=== PATIENT | female | born 1940 | race Two or more races ===

== ENCOUNTER 2024-11-19 13:51 | Outpatient (CLI) | payer MEDICARE, SELFPAY ==
--- NOTE | 2024-11-19 11:00 | DI.RAD_ITS ---
Exam(s) XR HIP LT COMPLETE AP PELVIS EXAM: XR HIP LT COMPLETE AP PELVIS CLINICAL HISTORY: L hip/knee pain. TECHNIQUE: 2D digital imaging was performed. Two views. COMPARISON: CR XR KNEE COMPLETE MIN 4V BILAT-M2 from 10/04/2022 FINDINGS: BONES: No acute fracture is present. No bony destructive lesion is seen. JOINTS: No dislocation present. The SI joints and pubic symphysis are intact. Minimal degenerative ch anges of the hip joints and left SI joint.. SOFT TISSUE: Normal. IMPRESSION: Minimal degenerative changes. DATA REPOSITORY: RADIATION DOSE DELIVERED:
== END 2024-11-19 13:52 | disposition home or self-care (01) ==
LOC: DIORS 13:52
PROVIDERS: PCP Family Medicine; Referring Provider Family Medicine; Visit Provider Student in an Organized Health Care Education/Training Program
DX: M17.12 Unilateral primary osteoarthritis, left knee
CPT/HCPCS: 99203; 73502

== ENCOUNTER 2025-02-15 10:59 | Outpatient (CLI) | payer MEDICARE, SELFPAY ==
--- NOTE | 2025-02-15 10:45 | DI.RAD_ITS ---
Exam(s) XR KNEE LT 1V XR STANDING ALIGNMENT EXAM: XR STANDING ALIGNMENT CLINICAL HISTORY: PRE OP L TKA. TECHNIQUE: 2D digital imaging was performed. Standing AP views were performed from the pelvis through the ankles. Lateral view of the left knee COMPARISON: CR XR KNEE LT 1V from 02/15/2025 FINDINGS: BONES: No acute fracture is present. No bony destructive lesion is seen. Prominent scoliosis as well as degenerative changes are noted in the lower lumbar spine. Leg length discrepancy: No significant overall leg length discrepancy at the level of the femoral heads. The right tibia is longer than the left by approximately 1 cm. JOINTS: Knees: The knee joint spaces are maintained. There is mild periarticular spurring. The ankle joints are unremarkable. The hip joints are unremarkable. SOFT TISSUE: Normal. IMPRESSION: Mild degenerative changes of the knees. leg length discrepancy at the level of the tibias, with the right tibia measuring 1 cm longer than the left.. DATA REPOSITORY: RADIATION DOSE DELIVERED:
== END 2025-02-15 11:00 | disposition home or self-care (01) ==
LOC: DIORS 11:00
PROVIDERS: PCP Family Medicine; Referring Provider Family Medicine; Visit Provider Physician Assistant
DX: Z01.818 Encounter for other preprocedural examination (principal); M17.12 Unilateral primary osteoarthritis, left knee
CPT/HCPCS: 99024; 73560; 77073

== ENCOUNTER 2025-02-24 06:55 | Day surgery (SDC) | payer MEDICARE, SELFPAY ==
[2025-02-24] VITALS (29 sets, daily range): BP systolic 117–162; BP diastolic 44–67; PULSE 54–78; RESP 12–19; TEMP 36.3–36.6; O2SAT 91–98; BMI 27.8
--- NOTE | 2025-02-24 07:24 | W.PM.DSUDISC ---
Date of service: 02/24/25 Discharge Plan Disposition Patient Disposition: Home Condition: Good Discharge Details Reason For Visit: L TKR Attending Provider: Jean Pratt Primary Care Provider: Joao Lombardo Home Meds and New Rx's Prescriptions: New celecoxib 200 mg capsule 200 mg PO BID Qty: 60 0RF aspirin 81 mg tablet,delayed release (DR/EC) 81 mg PO BID Qty: 60 0RF acetaminophen 500 mg tablet 1,000 mg PO TID Qty: 90 3RF dexamethasone 4 mg tablet 4 mg PO DAILY Qty: 2 0RF docusate sodium 100 mg capsule 100 mg PO BID PRNQty: 28 0RF gabapentin 300 mg capsule 300 mg PO QHS Qty: 14 0RF oxycodone 5 mg tablet 5 mg PO Q4H PRNQty: 18 0RF Continued calcium carbonate-vitamin D3 600 mg-20 mcg (800 unit) tablet 1 tab PO BID fexofenadine [Barbara Allergy] 180 mg tablet 180 mg PO DAILY amlodipine 5 mg tablet 5 mg PO DAILY atorvastatin 20 mg tablet 20 mg PO DAILY metoprolol succinate 25 mg tablet extended release 24 hr 25 mg PO DAILY omeprazole 20 mg capsule,delayed release(DR/EC) 20 mg PO DAILY psyllium husk [Daily Fiber] 0.4 gram capsule 0.4 g PO DAILY Discontinued aspirin [Adult Aspirin Regimen] 81 mg tablet,delayed release (DR/EC) 81 mg PO DAILY acetaminophen 500 mg capsule 500 mg PO BID Discharge Instructions Additional Instructions: Total Knee Discharge Instructions Activity: The most important activity is to walk and to work on gentle motion (both flexion and extension). You should try to take short walks a few times a day. It is important that when resting you work on keeping the knee straight. Avoid putting a pillow behind the knee as this will encourage flexion. Work on range of motion exercises as provided by Physical Therapy. - Start outpatient physical therapy within 2 weeks. - You should wear the RUTH hose on both legs for 2 weeks. You may remove these at night. You may also use any compression sock in place of the RUTH hose. - Utilize [employer] to review exercises, see videos on exercises and obtain basic information pertaining to your surgery and your recovery. Dressing: Remove the Singh wrap by 2 days after your surgery and put on the RUTH stocking given to you from the hospital. Keep the surgical dressing (underneath the SINGH wrap) in place for at least one week. After the first week it may be removed and replaced with light gauze and tape or nothing. The wound and dressing may get wet after 3 days but avoid soaking the dressing or otherwise it will need to be changed. Many people prefer covering the dressing with cling wrap (saran wrap) to minimize it from getting soaked. If it gets wet, just pat dry. If it starts to peel off then it will need to be changed. Medications: - You should take Tylenol and anti-inflammatory Celebrex as your primary pain control medications. If the Celebrex is too expensive or not covered, please call the office for another alternative (Advil/Ibuprofen or Naproxen/Aleve) - You have been prescribed a stronger pain medication Oxycodone for breakthrough pain, take as needed as prescribed. - You will continue your stomach acid reduction agent omeprazole to help reduce stomach acid and reflux. - You have been prescribed Gabapentin to take at night for restlessness and nerve pain. - You will be taking Aspirin 81mg twice a day for DVT prevention unless instructed otherwise. - You have also been prescribed Decadron to take to control post-operative nausea and pain. You will start this tomorrow. - If you have constipation you should take Colace or Miralax (both [id number]). It takes most people 3-4 days to have a bowel movement. Follow-up: 2 weeks If you have any acute concerns or questions, please do not hesitate to contact the office at [phone]. You may contact Dr. Pratt with any questions after hours through the hospital at [phone] or on his cell phone at [phone]. Stand Alone Forms: Anesthesia Discharge Inst., [place].Nerve Block Instructions, Arabella Wood ([facility]) Referrals: Jean Pratt MD [ [facility] STAFF PHYSICIAN, Orthopaedic Surgical] - 03/11/25 11:15 am Equipment/Supplies: Walker Activity:: Activity as Tolerated Shower/Bathe:: 72 hours Diet:: As Tolerated Discharge Orders Discharge Orders: Discharge Order (Routine); Ordered 02/24/25 Ordered By: John Lee DS: Diagnosis Discharge Diagnosis (1) Osteoarthritis of left knee: Status: Acute
--- NOTE | 2025-02-24 07:37 | W.ANESPRE ---
General Info Date of Service Date Performed: 02/24/25 Height: 5 ft 6 in Weight: 78.2 kg Body Mass Index (BMI): 27.8 Surgical Procedure: Operation Date: 02/24/25 10:55 Proposed Procedure Side Surgeon p Knee Total Arthroplasty Left Jean Pratt MD Meds Allergies and Home Medications Allergies Allergy/AdvReac Type Severity Reaction Status Date / Time alcohol Allergy Unknown Anaphylaxis Verified 02/24/25 07:40 clindamycin Allergy Unknown Unknown Verified 02/24/25 07:40 ibuprofen Allergy Unknown Unknown Verified 02/24/25 07:40 sulfisoxazole (From Allergy Unknown Unknown Verified 02/24/25 07:40 Gantrisin) Home Medication ?Medication ?Instructions ?Recorded amlodipine 5 mg tablet 5 mg PO DAILY 09/29/24 atorvastatin 20 mg tablet 20 mg PO DAILY 09/29/24 fexofenadine 180 mg tablet 180 mg PO DAILY 09/29/24 (Barbara Allergy) metoprolol succinate 25 mg 25 mg PO DAILY 09/29/24 tablet,extended release 24 hr omeprazole 20 mg capsule,delayed 20 mg PO DAILY 09/29/24 release calcium 600 mg (as 1 tab PO BID 11/19/24 carbonate)-vitamin D3 20 mcg (800 unit) tablet psyllium husk 0.4 gram capsule 0.4 g PO DAILY 02/23/25 (Daily Fiber) acetaminophen 500 mg tablet 1,000 mg (2 x 500 mg) PO TID #90 02/24/25 tabs aspirin 81 mg tablet,delayed 81 mg PO BID #60 tabs 02/24/25 release celecoxib 200 mg capsule 200 mg PO BID #60 caps 02/24/25 dexamethasone 4 mg tablet 4 mg PO DAILY #2 tabs 02/24/25 docusate sodium 100 mg capsule 100 mg PO BID PRN #28 caps 02/24/25 gabapentin 300 mg capsule 300 mg PO QHS #14 caps 02/24/25 oxycodone 5 mg tablet 5 mg PO Q4H PRN #18 tabs 02/24/25 Current Visit Medications: Current Medications Generic Name Dose Route Start Last Admin Trade Name Freq PRN Reason Stop Dose Admin Acetaminophen 1,000 mg 02/24/25 06:00 Acetaminophen 500 Mg Tab PO 02/24/25 23:59 PREOP MARINO Acetaminophen 1,000 mg 02/24/25 07:21 Acetaminophen 500 Mg Tab PO 03/26/25 07:20 TID PRN PRN Analgesia Celecoxib 400 mg 02/24/25 06:00 Celecoxib 200 Mg Cap PO 02/24/25 23:59 PREOP MARINO Docusate Sodium 100 mg 02/24/25 07:21 Docusate Sodium 100 Mg Cap PO 03/26/25 07:20 BID PRN PRN Constipation Gabapentin 300 mg 02/24/25 06:00 Gabapentin 300 Mg Cap PO 02/24/25 23:59 PREOP MARINO Ringer's Solution 1,000 mls @ 80 mls/hr 02/24/25 06:00 IV 02/24/25 23:59 INFUSION MARINO Cefazolin Sodium/Dextrose 2 gm in 50 mls @ 100 mls/hr 02/24/25 06:00 Ancef Duplex IVPB 02/24/25 23:59 PREOP MARINO Tranexamic Acid/Sodium Chloride 1,000 mg in 100 mls @ 600 mls/hr 02/24/25 06:00 IVPB 02/24/25 23:59 PREOP MARINO IV Miscellaneous Supplies 1 each 02/24/25 06:00 Iv Access IV 02/24/25 23:59 DIRECTED MARINO Ondansetron HCl 4 mg 02/24/25 07:21 Ondansetron 4 Mg/2 Ml Vial IVP 03/26/25 07:20 Q6H PRN PRN Nausea Oxycodone HCl 0 mg 02/24/25 07:21 Oxycodone 5 Mg Tab PO 03/26/25 07:20 Q3H PRN PRN Pain Polyethylene Glycol 17 gm 02/24/25 07:21 Polyethylene Glycol 3350 17 Gm Packet PO 03/26/25 07:20 BID PRN PRN Constipation Sodium Chloride 0 ml 02/24/25 06:00 Normal Saline Flush 10 Ml Syr IV 02/24/25 23:59 PRN PRN Sodium Chloride 0 ml 02/24/25 06:00 Normal Saline 10 Ml Vial IJ 02/24/25 23:59 DIRECTED PRN Sterile Water 0 ml 02/24/25 06:00 Water,Injection,Sterile 10 Ml Vial IJ 02/24/25 23:59 DIRECTED PRN Tranexamic Acid 1,300 mg 02/24/25 07:21 Tranexamic Acid 650 Mg Tab PO 02/24/25 07:22 ONCE ONE PFSH Active Problems Active Problems: Problem Status Onset Code Osteoarthritis of left knee Acute M17.12 Vitamin D deficiency Acute E55.9 History of nephrectomy Acute Z90.5 Osteoporosis Chronic M81.0 Hypertensive disorder Chronic I10 GERD (gastroesophageal reflux disease) Chronic K21.9 Dyslipidemia Acute E78.5 Arteriosclerotic vascular disease Acute I70.90 Surgical History Surgical History History of cataract extraction History of nephrectomy, right History of tubal ligation History of tonsillectomy History of appendectomy History of cholecystectomy Alcohol Alcohol Intake: never Substance Use Substance use type: does not use Vital Signs and Lab Results Vital Signs Most Recent Vital Signs in EMR: Most Recent Vital Signs Pulse Resp BP Pulse Ox 78 16 159/59 H 94 02/24/25 07:23 02/24/25 07:23 02/24/25 07:23 02/24/25 07:23 Imaging and Studies Imaging and Studies Study information below may be from another EMR and interpreted by another provider. Please see original notes in EMR for more complete details. EKG Summary: 01/28/25 SR Anesthesia Assessment and Plan Anesthesia History Personal History: No History of Anesthesia Complications Family History: No Family History of Anesthesia Complications Exercise Tolerance Exercise Tolerance: Metabolic Equivalents<4 Pertinent Negatives Pertinent Negatives: No Symptoms of GERD, No Major Cardiovascular Symptoms or Complaints, No Major Pulmonary Symptoms or Complaints and No History of CVA/TIA Cardiac & Pulmonary Exam Cardiac Exam: Normal S1/S2 Heart Sounds Pulmonary Exam: Clear Bilateral Breath Sounds Implantable Cardiac Device Does patient have a Pacemaker or an ICD?: No Airway Exam Known Difficult Airway: No Mallampati Class: 3 Mouth Opening: Normal (> 3cm) Thyromental Distance: Less than 3 cm Neck Range of Motion: Limited ROM Neck Circumference: Normal Teeth Condition: Normal Dentition ASA Classification ASA Score: ASA 3 Emergency Case?: No NPO Status NPO Status: NPO Clears >2 hours, Solids >8 hours Anesthesia Plan Resuscitation Status: Full Code Anesthesia Technique: Spinal Anesthesia Airway Planned: Natural Airway Pain Management: Surgeon and patient request nerve block Monitors Used: Standard Monitors Preoperative Comments:: 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 GFR slightly diminished.
[2025-02-24] MEDS: Lactated Ringers 1,000 ML 80 ML IV (08:02)
[2025-02-24] MEDS: Acetaminophen 500 MG TAB 1000 MG PO (08:03)
[2025-02-24] MEDS: Celecoxib 200 MG CAP 400 MG PO (08:03)
[2025-02-24] MEDS: Gabapentin 300 MG CAP PO (08:03)
--- NOTE | 2025-02-24 09:58 | W.ANESNERVE ---
Nerve Block Single Injection Procedure Date and Time Date Performed: 02/24/25 Procedure Start: 09:30 Location Where Procedure Performed Procedure Location: Day Surgery Unit Reason Performed: Postoperative Analgesia Requesting Provider: Jean Pratt Timeout Performed Timeout Performed: Yes Monitoring Used ECG, Blood Pressure, SpO2 and See EMR for corresponding vital signs Sterility Sterility: Hand Hygiene, Surgical Cap, Surgical Mask, Sterile Gloves, Sterile Drape/Sheet and Chlorhexidine Sedation Given During Procedure Sedation Given (Indicate Dose Given): No Sedation given Patient Mental Status Patient Mental Status: Awake Nerve Block 1st Nerve Block: Laterality: Left Block Type: Adductor Canal Ultrasound Image Saved?: Yes Needle / Catheter Used: 100mm SonoPlex II Local Anesthetic Bolus (Indicate Dose Given): Lidocaine used for local infiltration of skin, Injected in 3-5ml increments after negative blood aspiration, Bupivacaine 0.25% Dose:: 10 ml and Exparel Dose:: 10 ml Additives (Indicate Dose Given): None Ultrasound: Sterile probe cover and gel used Nerve Stimulator: Supplement to Ultrasound use and No twitch or parasthesia noted < 0.5 mA Paresthesia: None Procedure Tolerated: No Complications and Patient tolerated well Procedure Outcome: Successful Performed By: Claudia Griffin
[2025-02-24] MEDS: ceFAZolin 2 GM/50 ML BAG IVPB (10:11)
--- NOTE | 2025-02-24 10:24 | W.PM.OP ---
Operative Note Operative Note PRE-OP DIAGNOSIS: Left Knee Osteoarthritis POST-OP DIAGNOSIS: same PROCEDURE: Left Total Knee Replacement SURGEON: Jean Pratt DIRECTOR OF RADIOLOGY: Nury Lee ANESTHESIA TYPE: Spinal Refer to Anesthesia Record ESTIMATED BLOOD LOSS: 150 PATHOLOGY: none sent COMPLICATIONS: None Patient was transported to: PACU Patient's condition: stable Implants: 1. Depuy Attune Cruciate Retaining Femoral Component, Size 5 2. Depuy Attune Fixed Bearing Tibial Component, Size 4 3. Depuy Attune 5x6 CR,FB Poly 4. Depuy Attune Patellar Component, Size 38 Indications: I have seen Shaun in clinic for symptoms of knee arthritis, confirmed with radiographic findings. SHe has exhausted nonoperative methods and was having significant limitations in daily function and desired better function and less pain. I discussed the technical details of a knee replacement. I explained the risks of the procedure to include, but not limited to, bleeding, infection, pain, stiffness, fracture, damage to nerves and vessels, damage to muscles and tendons, loosening, need for repeat procedure, blood clot and cardiopulmonary demise. Despite these risks, Shaun elected to proceed. 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 There is some medial involvement although not as significant. Procedure Description: Shaun was greeted in the preoperative holding area where the correct side was identified and marked. The consent was reviewed with the patient and signed. The history and physical was updated. All questions were answered. Preoperative mediacations were administered: Acetaminophen 1000mg, Celebrex 400mg, and Gabapentin 300mg. An adductor canal block was then administered by the anesthesia team in the [facility]. She was taken back to the operating room. A spinal anesthestic was then administered. The patient was placed into the supine position on the operating room table. Posts were placed for positioning during the procedure. All bony prominences were well padded. Prophylactic antibiotics in the form of Cefazolin were administered. 1g of Tranxemic Acid was given intravenously within 30 minutes of incision. The right leg was then prepped with Chloraprep and draped in a standard fashion with impervious stockinette and extremity drape. A second prep with Chloraprep was performed prior to placing Ioband. A timeout to confirm correct identity, side and site, procedure, allergies, anesthesia, and medical concerns was performed. With the knee in some flexion, a midline incision was made overlying the knee. Full thickness skin flaps were raised once the extensor mechanism was encountered. These were raised medially and laterally. Any bleeding was controlled with electrocautery. Once the extensor mechanism was fully exposed, a medial parapatellar arthrotomy was performed in a flexed position. All bleeding from the arthrotomy and the geniculate arteries was coagulated. A medial subperiosteal peel was performed with electrocautery to the midcoronal plane. The fat pad was removed while keeping the patellar tendon protected. The anterior distal femur synovium was removed for later visualization. The ACL and PCL were resected and the anterior horn of the lateral meniscus was transected. The knee was then flexed with the patella everted. Using a step drill, and based on preoperative templating, the femoral canal was entered. This was done with a step drill without any difficulty. The intramedullary distal femoral cut guide was inserted, set to a 6 degree valgus cut and 9mm cut thickness. The distal femoral cut guide was then held in position and pinned. With the soft tissues protected, the distal cut was performed. This was passed over a few times to ensure a planar cut. I then turned attention to the tibia. The extramedullary guide was placed onto the leg. The distal aspect was slid medial to adjust for position of center of ankle and stay in line with shaft of the tibia. Approximately 3-5 degrees of posterior slope was kept in the proximal cutting guide. The center of the guide was aligned with the PCL. The stylus was used to assess cut thickness, a balanced cut between 7 and 8 mm medially and laterally. This was then held in position and pinned into place with 2 additional pins and a cross pin for stability. The medial and lateral collateral ligaments were protected and the cut was performed. With this completed, it was assessed and noted to be of appropriate dimensions. The guide was removed. A spacer block was inserted and the knee was brought into extension. The 6mm spacer block provided full extension, without hyperextension and with stability of both the medial and lateral collateral ligaments was assessed. The pins from the femur and the tibia were then removed. The distal femur was then sized. The anterior stylus was placed onto the lateral ridge of the anterior femur. This indicated a size 5 femur. The external rotation of the guide was adjusted to 3 degrees to match the epicondylar axis, perpendicular to [place]?s line. The 4-in-1 cutting guide was the placed. The posterior medial femur cut was evaluated and appeared of good thickness. The spacer block was inserted underneath the cutting guide and stability was confirmed in 90 degrees of flexion. An inez wing was used to confirm appropriate position of the anterior cut to avoid notching. This cutting guide was ensured to be flush on the cut surface and then pinned into place with headed pins. While protecting the soft tissues, quad tendon, and collateral ligaments, the anterior and posterior cuts were performed with a saw. The central two pins were removed and the posterior and anterior chamfers were cut next. The notch-cutting guide was placed. This was pinned to lateralize the femoral component as much as possible while keeping it flush on the cut surface. This was then pinned into position. A reciprocating saw was used to make the small notch cut. A trial CR femoral component was then inserted, impacted down to the cut surfaces, and the lug holes were drilled. A provisional trial tibial component was placed and the knee was brought through range of motion. There was noted to be excellent extension and flexion. There was no significant instability. The patella was tracking without thumbs. The tibial cut surface was fully exposed. The medial and lateral menisci were removed. The tibia was then sized as a 4. The tibia had been previously marked during trialing to correspond to the center of the tibial component to help with rotation. The trial was aligned to this nury, approximately rotated to the medial 1/3rd of the tibial tubercle. The trial was pinned into place. The tibia was prepared with a reamer and a keel punch. The knee was then brought into extension and the patella was measured as 23mm. Using the patellar clamp and cut guide, this was resected to a flat surface with at least 13mm of thickness remaining. The size 38 patella fit the best. This was oriented and then clamped into position. The lugs were drilled. The trial components were removed. The final components, except for the polyethylene were opened on the back table. The periosteal and capsular tissues, especially posteriorly, around the knee were then systematically injected with a periarticular cocktail consisting of 246mg of Ropivacaine, 0.5mg of Epinephrine, 0.08mg of Clonidine, and 30mg of Ketorolac, diluted to 100cc.. The tourniquet was then inflated to 275mmHg. The knee was thoroughly irrigated with a pulse lavage and dried. On the back table, with the implants opened, the cement was mixed. 2 batches of medium viscosity cement were prepared with vacuum assistance. After the cement was ready it was placed on to the back side of the tibial component. A small amount was placed onto the posterior flange of the femur. Cement was manual pressurized and impregnated into the cut surface of the tibia. The tibial component was then inserted into the cut surface and impacted into position. Excess cement was removed and the component was reimpacted. Again, excess cement was removed and our attention was then turned to the femur. The femoral cut surface was once again dried and cement was manually impacted into the cut surface. The femoral component was lined with the lug holes and impacted. Excess cement was removed. It was ensured to be down against the cut surface. The trial polyethylene was then inserted and the leg was brought out into full extension for the duration of the cement curing process, approximately 18min. Cement was lastly manually impacted into the cut surface of the patella and the patellar button was clamped into position and held. During this process attention was turned to the gutters of the knee and for all interfaces for any excess cement. While the cement was hardening, the knee was irrigated with Surgiphor Betadine solution. It was allowed to sit in the knee for 3 minutes and then it was thoroughly irrigated with saline. After the cement had finally cured, approximately 18min, the clamp was removed from the patella and the knee was taken through range of motion. A size 6mm polyethylene component provided the best range of motion and stability with less than 2mm gapping with medial and lateral stress and full extension without significant hyperextension. The patella was tracking with a no-thumbs technique. The trial poly was removed and once again the knee was checked for any loose, excess, or errant cement. The poly component was then inserted into position after cleaning and drying the tibial tray. The capsule was then reapproximated with a No. 1 Vicryl at multiple locations. The capsule was finally closed with a No. 2 Stratafix, barbed suture. Deep tissues were then reapproximated with 0 Vicryl and 2-0 Vicryl. The skin was closed with a running 3-0 Monocryl in a subcuticular fashion. This was reinforced with skin glue. A Mepilex silver dressing was applied along with a [id number] VIVEK wrap. A CryoCuff was applied. Shaun was transferred to the hospital bed without difficulty an suffering no apparent complication. She has a good prognosis. Physical therapy will start today and without restrictions, weight-bearing as tolerated. Aspirin 81mg BID will be used for DVT prophylaxis. Date of Procedure: 02/24/25
[2025-02-24] MEDS: TRANEXAMIC ACID/SOD. CHL. 1,000 MG/100 ML BAG 600 MG IVPB (10:25)
[2025-02-24] MEDS: oxyCODONE 5 MG TAB PO (13:41)
--- NOTE | 2025-02-24 13:44 | W.ANESPOSTOP ---
Postoperative Evaluation Date, Time and Location Date Performed: 02/24/25 Time Performed: 13:44 Patient Location: Day Surgery Unit Vital Signs Most Recent Imported Vital Signs: Most Recent Vital Signs Temp Pulse Resp BP Pulse Ox 36.6 C 68 15 117/64 96 02/24/25 13:06 02/24/25 13:06 02/24/25 13:06 02/24/25 13:06 02/24/25 13:06 Pain Score Most Recent Pain Score: Most Recent Pain Score Pain Level 5 02/24/25 13:06 Assessment Mental Status: Awake (Alert & Oriented to Patient Baseline) Airway and Respiratory Function: Patent airway with normal (patient baseline) respiratory exam Cardiovascular Function: Hemodynamically Stable Hydration Status: Adequately Hydrated Nausea & Vomiting: No Nausea or Vomiting Pain: Pain is tolerable per patient Peripheral Nerve Block: Patient did not receive a nerve block
[2025-02-24] MEDS: Tranexamic Acid 650 MG TAB 1300 MG PO (14:24)
--- NOTE | 2025-02-24 14:48 | IN_ITS ---
PT Notes Visit Reasons: L TKR Physical Therapy Day Surgery Initial Evaluation Date: 02/26/2025 Referring Doctor: VAIBHAV Sibley PT Orders: PT CONSULT: Eval/Treat Precautions: WBAT on the left LE with AD. Patient Profile/Admitting Diagnosis: Harish is an 84-year-old female with degenerative joint disease of the left knee and status post left total knee arthroplasty on postoperative day 0. PMHX: All Active Problems (Updated 11/19/24 @ 12:44 by VAIBHAV Sibley) Osteoarthritis of left knee (Acute) Vitamin D deficiency (Acute) History of nephrectomy (Acute) Osteoporosis (Chronic) Hypertensive disorder (Chronic) GERD (gastroesophageal reflux disease) (Chronic) Dyslipidemia (Acute) Arteriosclerotic vascular disease (Acute) Surgical History (Updated 09/29/24 @ 13:04 by Isaebla Mike RN) History of tubal ligation History of tonsillectomy History of appendectomy History of cholecystectomy Social History/Home Situation: Lives with in a private home with 3 steps to enter with a rail on 1 side. Independent with all aspects of ADLs prior to surgery the patient has been having difficulty with mobility due to worsening arthritis in the left knee. Equipment Owned/DME: FWW, SPC Subjective: Denied headache, chest pain, and lightheadedness throughout session. Complained of 2?3/10 pain in the left knee that did not limit mobility performance. Objective: General Observation: Patient resting on bedside chair. Singh wraps to left LE. TDS to right leg and foot. Cryocuff to left knee. present in room throughout session. Mental Status: A and O x 4 Pain: 2?3/10 in left knee ROM: Right Lower Extremity: Hip flexion WFL. Hip abduction WFL. Knee flexion WFL. Ankle dorsiflexion WFL. Ankle plantarflexion WFL. Left Lower Extremity: Hip flexion WFL. Hip abduction WFL. Knee flexion 10 degrees to 100 degrees. Knee extension -10 degrees. Ankle dorsiflexion WFL. Ankle plantarflexion WFL. Strength: Right Lower Extremity: Hip flexors 5/5. Hip abductors 5/5. Knee flexors 5/5. Knee extensors 5/5. Ankle dorsiflexors 5/5. Ankle plantarflexors 5/5. Left Lower Extremity:Hip flexors 4/5. Hip abductors 4/5. Knee flexors 3-/5. Knee extensors 3-/5. Ankle dorsiflexors 5/5. Ankle plantarflexors 5/5. Sensation: Intact as to pain and light pressure in bilateral lower extremities Bed Mobility/Transfers: Minimal cueing provided for use of B hands as needed for support, movement sequence, AD management, and posture to reduce fall risk and minimize pain report Supine to sit stand by assist Sit to stand contact-guard assist with FWW Stand to sit standby assist with FWW Bed to chair standby assist with FWW Gait: Facilitate safe and correct performance of level surface ambulation covering a distance of 150 feet using reciprocal step through heel-toe gait pattern requiring only standby assist and minimal verbal cueing for AD management, po sture, and limb movement sequence to maximize independence and reduce fall risk. Stairs: Guided patient with safe and correct negotiation of 3 x 4 inch steps and 2 x 6 inch steps while holding onto 1 rail and using single-point cane with the other hand using step to gait pattern requiring only contact-guard assist and minimal verbal cueing for limb movement sequence, hand placement, and posture to maximize independence and reduce fall risk. Balance: Static Sitting: Normal Dynamic Sitting: Good Static Standing: Fair Dynamic Standing: Fair Special Tests: Mobility Limitations Standardized Measure [facility] 6 clicks Basic Mobility Inpatient Short Form: Raw Score: 23 CMS Score: 11% deficit Informed Consent/Education: Patient instructed in purpose of PT consult. Packet containing TKA exercise protocol has been given to patient. Education and training on initial set of exercises that can be done at home have been completed with patient. Trained patient with correct performance of exercises below to maximize motor control, joint flexibility, soft tissue extensibility of the L knee musculature: Access Code: [email or web address] URL: [email or web address] Date: 02/26/2025 Prepared by: Montse Ward Exercises - Supine Quad Set - 1 x daily - 7 x weekly - 1 sets - 10 reps - 5 hold - Supine Heel Slide - 1 x daily - 7 x weekly - 1 sets - 10 reps - 5 hold - Supine Ankle Pumps - 1 x daily - 7 x weekly - 1 sets - 10 reps - 5 hold - Small Range Straight Leg Raise - 1 x daily - 7 x weekly - 1 sets - 10 reps - 5 hold - Seated October - x daily - 7 x weekly - 1 sets - 10 reps - 5 hold Assessment: Patient requires the use of a front wheeled walker for mobility ADL performance to maximize independence and reduce fall risk. Patient presents with clinical signs and symptoms consistent with current/admitting diagnoses that have resulted to mobility limitations, gait instability, generalized weakness, and impairment of motor control as demonstrated by the following impairment level findings: 1. Decreased strength to left knee major muscle groups 2. Impaired standing balance 3. Limitation of joint range of motion in left knee Impairments are contributing to the following functional limitations: 1. Inability to safely ambulate without assistive device 2. Increase completion time for mobility ADL performance 3. Increased fall risk Patient is assessed as a 62804 moderate complexity based on the following: History: 84-year-old female with impairment level findings, functional limitations, and past medical history as indicated above Examination: Demonstrable impairment in strength, balance, and mobility level with underlying impairments and functional limitations as documented above Presentation: Evolving 80570 moderate complexity Decision Making: Goals: N/A. PT evaluation and 1-2 treatment sessions only for functional mobility training using recommended AD and for HEP instruction. Plan of Care/Treatment Plan: N/A. PT evaluation and 1-2 treatment session only for functional mobility training using recommended AD and for HEP instruction. DISCHARGE RECOMMENDATIONS: Home when medically cleared by orthopedic surgeon. Recommend outpatient PT services in order to optimize functional mobility outcomes and facilitate return to independent community ambulation without an assistive device. TREATMENT CODE/TIME: 65866 x 20 minutes for 1 unit, 31710 x 10 minutes for 1 unit (14 48?15:18). Thank you for the opportunity to participate in the care of this patient. Montse Ward PT, DPT, CLT [facility] [place], [place]
== END 2025-02-24 16:30 | disposition home or self-care (01) ==
PROVIDERS: PCP Family Medicine; Visit Provider Student in an Organized Health Care Education/Training Program
PROC: (CPT 27447; principal; 2025-02-24 10:45)
DX: M17.12 Unilateral primary osteoarthritis, left knee (principal); G89.18 Other acute postprocedural pain
CPT/HCPCS: 27447; 64447; 97162; 97530; C1776; J0665; J0666; J0690; J1100; J2250; J2371; J2401; J2405; J2704

== ENCOUNTER 2025-03-11 11:06 | Outpatient (CLI) | payer MEDICARE, SELFPAY ==
--- NOTE | 2025-03-11 10:45 | DI.RAD_ITS ---
Exam(s) XR KNEE LT 1V XR STANDING ALIGNMENT EXAM: XR STANDING ALIGNMENT and XR knee LT 1 V CLINICAL HISTORY: 1ST POST OP S/P L TKA. TECHNIQUE: 2D digital imaging was performed. Five images were obtained. COMPARISON: CR XR HIP LT COMPLETE AP PELVIS from 11/19/2024 CR XR KNEE LT 1V from 02/15/2025 CR XR STANDING ALIGNMENT from 02/15/2025 FINDINGS: BONES: The hips are well maintained. There are mild degenerative changes seen in the right knee. Since the prior examination the patient has had a left total knee arthroplasty. The orthopedic hardware appears in good position. No suspicious lucencies are seen around the hardware. There is a small joint effusion. The ankles are well maintained.There is no significant leg length discrepancy. SOFT TISSUE: Normal. IMPRESSION: Interval placement of a left total knee arthroplasty. The orthopedic hardware appears in good position. DATA REPOSITORY: RADIATION DOSE DELIVERED:
== END 2025-03-11 11:07 | disposition home or self-care (01) ==
LOC: DIORS 11:06
PROVIDERS: PCP Family Medicine; Referring Provider Family Medicine; Visit Provider Student in an Organized Health Care Education/Training Program
DX: Z47.1 Aftercare following joint replacement surgery (principal); Z96.652 Presence of left artificial knee joint; M25.562 Pain in left knee
CPT/HCPCS: 99024; 73560; 77073

== ENCOUNTER → 2025-04-09 10:39 | Outpatient (BNVA) | payer MEDICARE, SELFPAY | PROVIDERS: PCP Family Medicine; Referring Provider Family Medicine; Visit Provider Physician Assistant | DX: T84.82XA Fibrosis due to internal orthopedic prosthetic devices, implants and grafts, initial encounter (principal) | CPT/HCPCS: 99213 ==

== ENCOUNTER → 2025-04-29 14:55 | Outpatient (BNVA) | payer MEDICARE, SELFPAY | PROVIDERS: PCP Family Medicine; Referring Provider Family Medicine; Visit Provider Student in an Organized Health Care Education/Training Program | DX: T84.82XA Fibrosis due to internal orthopedic prosthetic devices, implants and grafts, initial encounter (principal) | CPT/HCPCS: 99213 ==

== ENCOUNTER 2025-05-04 11:50 | Day surgery (SDC) | payer MEDICARE, SELFPAY ==
[2025-05-04] VITALS (18 sets, daily range): BP systolic 125–151; BP diastolic 47–61; PULSE 61–79; RESP 14–29; TEMP 36.1–36.7; O2SAT 93–99; BMI 27.5
--- NOTE | 2025-05-04 10:30 | W.PM.DSUDISC ---
Date of service: 05/04/25 Discharge Plan Disposition Patient Disposition: Home Condition: Good Discharge Details Reason For Visit: Left knee arthrofibrosis Attending Provider: Jean Pratt Primary Care Provider: Joao Lombardo Home Meds and New Rx's Prescriptions: New acetaminophen 500 mg tablet 1,000 mg PO Q8H PRN Qty: 90 0RF Rx Instructions: Take two tablets up to every 8 hours as needed for pain ibuprofen 600 mg tablet 600 mg PO TID PRN (Reason: pain) Qty: 60 0RF tramadol 50 mg tablet 50 mg PO Q6H PRN PRNQty: 15 0RF Continued calcium carbonate-vitamin D3 600 mg-20 mcg (800 unit) tablet 1 tab PO BID fexofenadine [Barbara Allergy] 180 mg tablet 180 mg PO DAILY amlodipine 5 mg tablet 5 mg PO DAILY atorvastatin 20 mg tablet 20 mg PO DAILY metoprolol succinate 25 mg tablet extended release 24 hr 25 mg PO DAILY omeprazole 20 mg capsule,delayed release(DR/EC) 20 mg PO DAILY psyllium husk [Daily Fiber] 0.4 gram capsule 0.4 g PO DAILY docusate sodium 100 mg capsule 100 mg PO BID PRNQty: 28 0RF Discontinued celecoxib 200 mg capsule 200 mg PO BID Qty: 60 0RF acetaminophen 500 mg tablet 1,000 mg PO TID Qty: 90 3RF Discharge Instructions Additional Instructions: Knee Manipulation Discharge Instructions Activity: You should begin moving as soon as possible. You may work on flexion but also equally maintain extension. You may bear weight as tolerated, using crutches only for support/comfort. You should apply ice to help with swelling and elevate when possible (especially in the first few days). Dressings: The bandaid may be removed this evening. You may shower and get the wound wet at that time. Medications: - Rarely does this require any stronger pain medications but Tramadol has been called in. Please treat your pain so you may keep the knee moving and working with physical therapy. - Recommend to take up to 1000mg of Acetaminophen (Tylenol) and 600mg of Ibuprofen (Advil) every 8 hours as needed. These larger strength tablets were called in but you also may use [id number]. Follow-up: 7-10 days. Physical therapy begins tomorrow. Stand Alone Forms: Anesthesia Discharge Arabella Simon (DSU) Equipment/Supplies: Walker Activity:: Elevate Remove Dressings/Wound Care:: 24 hours Shower/Bathe:: 24 hours Diet:: As Tolerated Discharge Orders Discharge Orders: Discharge Order (Routine); Ordered 05/04/25 Ordered By: Farhana Cardoza
[2025-05-04] MEDS: Acetaminophen 500 MG TAB 1000 MG PO (12:19)
[2025-05-04] MEDS: Celecoxib 200 MG CAP 400 MG PO (12:20)
[2025-05-04] MEDS: Lactated Ringers 1,000 ML 80 ML IV (12:39)
--- NOTE | 2025-05-04 12:42 | W.ANESPRE ---
General Info Date of Service Date Performed: 05/04/25 Height: 5 ft 6 in Weight: 77.3 kg Body Mass Index (BMI): 27.5 Surgical Procedure: Operation Date: 05/04/25 14:40 Proposed Procedure Side Surgeon p Knee Manipulation of Knee Jean Pratt MD Meds Allergies and Home Medications Allergies Allergy/AdvReac Type Severity Reaction Status Date / Time alcohol Allergy Unknown Anaphylaxis Verified 05/04/25 12:10 clindamycin Allergy Unknown Unknown Verified 05/04/25 12:10 ibuprofen Allergy Unknown Unknown Verified 05/04/25 12:10 sulfisoxazole (From Allergy Unknown Unknown Verified 05/04/25 12:10 Gantrisin) Home Medication ?Medication ?Instructions ?Recorded amlodipine 5 mg tablet 5 mg PO DAILY 09/29/24 atorvastatin 20 mg tablet 20 mg PO DAILY 09/29/24 fexofenadine 180 mg tablet 180 mg PO DAILY 09/29/24 (Barbara Allergy) metoprolol succinate 25 mg 25 mg PO DAILY 09/29/24 tablet,extended release 24 hr omeprazole 20 mg capsule,delayed 20 mg PO DAILY 09/29/24 release calcium 600 mg (as 1 tab PO BID 11/19/24 carbonate)-vitamin D3 20 mcg (800 unit) tablet psyllium husk 0.4 gram capsule 0.4 g PO DAILY 02/23/25 (Daily Fiber) docusate sodium 100 mg capsule 100 mg PO BID PRN #28 caps 02/24/25 Held on 05/04/25. Instructions: Prescription Finished acetaminophen 500 mg tablet 1,000 mg (2 x 500 mg) PO Q8H PRN 05/04/25 pain #90 tabs ibuprofen 600 mg tablet 600 mg PO TID PRN pain #60 tabs 05/04/25 Current Visit Medications: Current Medications Generic Name Dose Route Start Last Admin Trade Name Freq PRN Reason Stop Dose Admin Acetaminophen 1,000 mg 05/04/25 06:00 05/04/25 12:19 Acetaminophen 500 Mg Tab PO 05/04/25 23:59 1,000 mg PREOP MARINO Administration Acetaminophen 650 mg 05/04/25 10:29 Acetaminophen 325 Mg Tab PO 06/03/25 10:28 Q4H PRN PRN Hydrocodone Bitart/Acetaminophen 0 tab 05/04/25 10:29 Hydrocodone 5/Acetaminophen 325 Tab PO 06/03/25 10:28 Q3H PRN PRN Pain Celecoxib 400 mg 05/04/25 06:00 05/04/25 12:20 Celecoxib 200 Mg Cap PO 05/04/25 23:59 400 mg PREOP MARINO Administration Ringer's Solution 1,000 mls @ 80 mls/hr 05/04/25 06:00 05/04/25 12:39 IV 05/04/25 23:59 80 mls/hr INFUSION MARINO Administration Tranexamic Acid/Sodium Chloride 1,000 mg in 100 mls @ 600 mls/hr 05/04/25 06:00 IVPB 05/04/25 23:59 PREOP MARINO IV Miscellaneous Supplies 1 each 05/04/25 06:00 Iv Access IV 05/04/25 23:59 DIRECTED MARINO Sodium Chloride 0 ml 05/04/25 06:00 Normal Saline Flush 10 Ml Syr IV 05/04/25 23:59 PRN PRN Sodium Chloride 0 ml 05/04/25 06:00 Normal Saline 10 Ml Vial IJ 05/04/25 23:59 DIRECTED PRN Sterile Water 0 ml 05/04/25 06:00 Water,Injection,Sterile 10 Ml Vial IJ 05/04/25 23:59 DIRECTED PRN PFSH Active Problems Active Problems: Problem Status Onset Code Arthrofibrosis of total knee arthroplasty Acute T84.82XA History of total left knee replacement Acute 02/24/25 Z96.652 Vitamin D deficiency Acute E55.9 History of nephrectomy Acute Z90.5 Osteoporosis Chronic M81.0 Hypertensive disorder Chronic I10 GERD (gastroesophageal reflux disease) Chronic K21.9 Dyslipidemia Acute E78.5 Arteriosclerotic vascular disease Acute I70.90 Surgical History Surgical History History of cataract extraction History of nephrectomy, right History of tubal ligation History of tonsillectomy History of appendectomy History of cholecystectomy Tobacco Smoking/Tobacco Use Status: Former Tobacco Use Passive smoking exposure: No Alcohol Alcohol Intake: never Substance Use Substance use: Never Substance use type: does not use Vital Signs and Lab Results Vital Signs Most Recent Vital Signs in EMR: Most Recent Vital Signs Temp Pulse Resp BP Pulse Ox 36.7 C 79 16 140/60 97 05/04/25 12:24 05/04/25 12:24 05/04/25 12:24 05/04/25 12:24 05/04/25 12:24 Imaging and Studies Imaging and Studies Study information below may be from another EMR and interpreted by another provider. Please see original notes in EMR for more complete details. EKG Summary: 01/28/25 SR Anesthesia Assessment and Plan Anesthesia History Personal History: No History of Anesthesia Complications Family History: No Family History of Anesthesia Complications Exercise Tolerance Exercise Tolerance: Metabolic Equivalents<4 Cardiac & Pulmonary Exam Cardiac Exam: Normal S1/S2 Heart Sounds Pulmonary Exam: Clear Bilateral Breath Sounds Implantable Cardiac Device Does patient have a Pacemaker or an ICD?: No Airway Exam Known Difficult Airway: No Mallampati Class: 3 Mouth Opening: Normal (> 3cm) Thyromental Distance: Less than 3 cm Neck Range of Motion: Limited ROM Neck Circumference: Normal Teeth Condition: Normal Dentition ASA Classification ASA Score: ASA 2 Emergency Case?: No NPO Status NPO Status: NPO Clears >2 hours, Solids >8 hours Anesthesia Plan Resuscitation Status: Full Code Anesthesia Technique: General Anesthesia Airway Planned: Natural Airway Monitors Used: Standard Monitors Preoperative Comments:: 84 yo for knee manipulation. Sig PMHx: HTN (amlodipine, metoprolol), GERD (omeprazole. well controlled), s/p nephrectomy (last GFR 49, creat 1.13). Previous Anes: - TKA, spinal - 2 attempts, prop sedation, no issues.
--- NOTE | 2025-05-04 13:45 | ROE_ITS ---
Operative Note Operative Note PRE-OP DIAGNOSIS: Left Knee Arthrofibrosis s/p Replacement POST-OP DIAGNOSIS: same PROCEDURE: Left Knee Manipulation Under Anesthesia SURGEON: Jean Pratt ANESTHESIA TYPE: General:No Airway Refer to Anesthesia Record ESTIMATED BLOOD LOSS: 0 PATHOLOGY: none sent TOURNIQUET TIME: 0 COMPLICATIONS: None Patient was transported to: PACU Patient's condition: stable Indications: Shaun is a 84 year old female who is s/p knee replacement. Despite diligent work with physical therapy there has been continued stiffness. To assist with mobility, I offered a manipulation under anesthesia. I discussed the risks of the procedure to include bleeding, pain, recurrent stiffness, fracture. Despite these risks, she elects to proceed. Findings: Preoperative flexion = 80 Postoperative flexion = 125 Preoperative extension = 15 Postoperative extension = 5 Procedure Description: The patient was greeted in the preoperative holding area. Identity was confirmed and the correct side was identified and marked. The consent was reviewed the patient and signed. History and physical was updated. Shaun was taken back to the operating room. The left side was identified as the correct side. A timeout was performed for safe surgery. A general anesthetic was administered. The knee was then prepped with ChloraPrep and an intra-articular injection of 10 cc of 0.25% bupivacaine was administered. Once a muscle relaxant was fully on board manipulation was performed. Pre- manipulation range of motion was noted. A gentle manipulation was performed first into flexion using a very small lever arm and adding gentle and progressive pressure to the tibia. There is audible and palpable crepitus with improvement in range of motion. This was cycled and repeated multiple times. The leg was then brought into extension and gentle anterior posterior pressure was applied with a supported hand behind the proximal tibia and knee. This was brought back into flexion was once again manipulated with gentle and progressive pressure. Final range of motion numbers were recorded 5-125. A Band-Aid was applied to the injection site. She was awakened from anesthesia and taken to the PACU in stable condition. Date of Procedure: 05/04/25
[2025-05-04] MEDS: Bupivacaine 0.25% Pres-Free 30 ML VIAL (13:55)
--- NOTE | 2025-05-04 14:00 | W.ANESPOSTOP ---
Postoperative Evaluation Date, Time and Location Date Performed: 05/04/25 Time Performed: 14:00 Patient Location: PACU Vital Signs Most Recent Imported Vital Signs: Most Recent Vital Signs Temp Pulse Resp BP Pulse Ox 36.3 C L 73 25 H 127/61 96 05/04/25 13:44 05/04/25 13:52 05/04/25 13:52 05/04/25 13:52 05/04/25 13:52 Pain Score Most Recent Pain Score: Most Recent Pain Score Pain Level 0 05/04/25 13:44 Assessment Mental Status: Awake (Alert & Oriented to Patient Baseline) Airway and Respiratory Function: Patent airway with normal (patient baseline) respiratory exam Cardiovascular Function: Hemodynamically Stable Hydration Status: Adequately Hydrated Nausea & Vomiting: No Nausea or Vomiting Pain: Pain is tolerable per patient Peripheral Nerve Block: Patient did not receive a nerve block
== END 2025-05-04 15:40 | disposition home or self-care (01) ==
LOC: SUR 11:51
PROVIDERS: PCP Family Medicine; Visit Provider Student in an Organized Health Care Education/Training Program
PROC: (CPT 27570; principal; 2025-05-04 14:30)
DX: T84.82XA Fibrosis due to internal orthopedic prosthetic devices, implants and grafts, initial encounter (principal); I10 Essential (primary) hypertension
CPT/HCPCS: 27570; J0330; J0665; J2371; J2405; J2704

== ENCOUNTER → 2025-05-17 14:53 | Outpatient (BNVA) | payer MEDICARE, SELFPAY | PROVIDERS: PCP Family Medicine; Referring Provider Family Medicine; Visit Provider Student in an Organized Health Care Education/Training Program | DX: T84.82XA Fibrosis due to internal orthopedic prosthetic devices, implants and grafts, initial encounter (principal) | CPT/HCPCS: 99213 ==

== ENCOUNTER → 2025-06-14 13:24 | Outpatient (BNVA) | payer MEDICARE, SELFPAY | PROVIDERS: PCP Family Medicine; Referring Provider Family Medicine; Visit Provider Student in an Organized Health Care Education/Training Program | DX: T84.82XA Fibrosis due to internal orthopedic prosthetic devices, implants and grafts, initial encounter (principal) | CPT/HCPCS: 99213 ==

== ENCOUNTER 2025-08-02 15:55 | Outpatient (CLI) | payer MEDICARE, SELFPAY ==
--- NOTE | 2025-08-02 14:15 | DI.RAD_ITS ---
Exam(s) XR KNEE LT 3V AP,LAT,PARK EXAM: XR KNEE LT 3V AP,LAT,PARK CLINICAL HISTORY: left knee pain. TECHNIQUE: 2D digital imaging was performed. Three views. COMPARISON: CR XR KNEE LT 1V from 02/15/2025 CR XR KNEE LT 1V from 03/11/2025 CR XR STANDING ALIGNMENT from 03/11/2025 FINDINGS: BONES: No acute fracture is present. No bony destructive lesion is seen. JOINTS: The knee prosthesis is normally aligned. A small joint effusion is seen. SOFT TISSUE: Normal. IMPRESSION: Unremarkable radiographs of the left knee prosthesis. DATA REPOSITORY: RADIATION DOSE DELIVERED:
== END 2025-08-02 15:56 | disposition home or self-care (01) ==
LOC: DIORS 15:55
PROVIDERS: PCP Family Medicine; Visit Provider Student in an Organized Health Care Education/Training Program
DX: T84.82XA Fibrosis due to internal orthopedic prosthetic devices, implants and grafts, initial encounter (principal)
CPT/HCPCS: 99214; 73562